=== PATIENT | male | born 1960 | race Caucasian/White ===

== ENCOUNTER 2018-03-19 07:14 | Day surgery (SDC) | payer OTHER, BC | END 2018-03-19 11:20 | disposition home or self-care (01) | LOC: GIL 07:14 | DX: Z12.11 Encounter for screening for malignant neoplasm of colon (principal); K29.50 Unspecified chronic gastritis without bleeding; K44.9 Diaphragmatic hernia without obstruction or gangrene; K21.9 Gastro-esophageal reflux disease without esophagitis; K64.8 Other hemorrhoids; D12.6 Benign neoplasm of colon, unspecified | CPT/HCPCS: 43239; 88305; 88312 ==